=== PATIENT | female | born 1950 | race Hispanic/Latino ===

== ENCOUNTER 2016-12-01 10:59 | Outpatient (CLI) | payer BC, MEDICARE ==
--- NOTE | 2016-12-01 12:56 | XRay Report ---
SKULL: History: Jaw pain. Multiple views demonstrate normal calvaria. No abnormal intracranial calcifications are noted and the visualized bony structures are normal. IMPRESSION: Unremarkable skull series. COMMENT: This report should not preclude CT if symptoms suggest an intracranial abnormality.
--- NOTE | 2016-12-04 08:10 | XRay Report ---
MANDIBLE, 4 VIEWS History: Jaw pain. Findings: No mandibular fracture or bony lesion is appreciated. There is normal articulation at the temporomandibular joints. No large periapical tooth abscess is detected. Impression: Unremarkable mandible.
== END 2016-12-01 11:00 | disposition home or self-care (01) ==
LOC: SPVIMAG 10:59
PROVIDERS: ATTEND Internal Medicine Hematology & Oncology
DX: R68.84 Jaw pain (principal)
CPT/HCPCS: 70110; 70260

== ENCOUNTER 2016-12-07 10:37 | Outpatient (CLI) | payer BC, MEDICARE ==
--- NOTE | 2016-12-10 12:45 | PET Report ---
PET/CT:12/07/16 10:37:00 CLINICAL: Breast cancer restaging. RADIOPHARMACEUTICAL: 14.54mCi F18-FDG. COMPARISON: 08/10/16 PET/CT TECHNIQUE- Following intravenous injection of F-18 FDG and an approximately 60 minute uptake period, CT and PET images from the mid skull to the upper thighs were acquired with the patient in the fasted state. No contrast was administered. The CT protocol used for this PET CT study is designed for attenuation correction and anatomic localization of PET abnormalities. This recreation director CT is not desired to produce and cannot replace, djecv-gt-hyb-art diagnostic CT scans with specific imaging protocols for different body parts and indications. Plasma glucose at the time of this test: 101g/dl. The standardized uptake values (SUV) are normalized to patient body weight and indicate the highest activity concentration (SUV max) in a given disease site. FINDINGS: Brain--Physiologic FDG uptake in the visualized regions of the brain. Neck--Physiologic FDG uptake . Chest--Physiologic FDG uptake in mediastinal blood pool and myocardium. Lungs--No abnormal uptake. No pulmonary nodule or mass. Pleura/pericardium--No abnormal uptake. Thoracic nodes--No abnormal uptake. Hepatobiliary--No abnormal uptake and resolution of previously described hepatic hypodensities. No liver mass. Liver background SUV mean, as a reference for comparing FDG studies, is 3.4 compared to 3.3 on the last exam. Spleen--No abnormal uptake. Pancreas--No abnormal uptake. Adrenal Glands--No abnormal uptake. Kidneys/Ureters/Bladder--No abnormal uptake. Abdominopelvic Nodes--No abnormal uptake. Bowel/Peritoneum/Mesentery--No abnormal uptake. Pelvic organs--No abnormal uptake. Bones/Soft Tissues--No abnormal uptake. Stable extensive sclerotic skeletal lesions with no FDG uptake. No new bone lesions. Other findings: Status post left mastectomy. Stable benign left adrenal adenoma IMPRESSION- Stable disease.
== END 2016-12-07 10:38 | disposition home or self-care (01) ==
LOC: PET 10:37
PROVIDERS: ATTEND Internal Medicine Hematology & Oncology
DX: C50.812 Malignant neoplasm of overlapping sites of left female breast (principal); D35.02 Benign neoplasm of left adrenal gland; G89.3 Neoplasm related pain (acute) (chronic); M89.8X8 Other specified disorders of bone, other site; Z90.12 Acquired absence of left breast and nipple; Z79.899 Other long term (current) drug therapy
CPT/HCPCS: 78815; 82962; A9552

== ENCOUNTER 2017-03-22 12:27 | Outpatient (CLI) | payer BC, MEDICARE ==
--- NOTE | 2017-03-26 08:32 | PET Report ---
PET/CT:03/22/17 12:27:00 CLINICAL: Breast cancer restaging. RADIOPHARMACEUTICAL: 15.01mCi F18-FDG. COMPARISON: 12/07/16 PET/CT TECHNIQUE- Following intravenous injection of F-18 FDG and an approximately 60 minute uptake period, CT and PET images from the mid skull to the upper thighs were acquired with the patient in the fasted state. No contrast was administered. The CT protocol used for this PET CT study is designed for attenuation correction and anatomic localization of PET abnormalities. This law enforcement director CT is not desired to produce and cannot replace, fetyn-sl-jze-art diagnostic CT scans with specific imaging protocols for different body parts and indications. Plasma glucose at the time of this test: 90g/dl. The standardized uptake values (SUV) are normalized to patient body weight and indicate the highest activity concentration (SUV max) in a given disease site. FINDINGS: Brain--Physiologic FDG uptake in the visualized regions of the brain. Neck--Physiologic FDG uptake . Chest--Physiologic FDG uptake in mediastinal blood pool and myocardium. Lungs--No abnormal uptake. No pulmonary nodule or mass. Pleura/pericardium--No abnormal uptake. Thoracic nodes--No abnormal uptake. Hepatobiliary--No abnormal uptake. Liver background SUV mean, as a reference for comparing FDG studies, is 3.9 compared to 3.4 on the last exam. No liver mass. Spleen--No abnormal uptake. Pancreas--No abnormal uptake. Adrenal Glands--No abnormal uptake. Kidneys/Ureters/Bladder--No abnormal uptake. Abdominopelvic Nodes--No abnormal uptake. Bowel/Peritoneum/Mesentery--No abnormal uptake. Pelvic organs--No abnormal uptake. Bones/Soft Tissues--Although extensive sclerotic skeletal metastases are radiographically stable by CT, new focal FDG uptake is identified in lesions of the right iliac bone with SUV 3.2 compared to 1.6 and the posterior right acetabulum with SUV 2.7 compared to 1.7. Other findings: Status post left mastectomy. Status post L5 kyphoplasty. IMPRESSION- 1. New focal FDG uptake in the right iliac bone and right acetabulumis consistent with active disease. 2. The rest of the exam is unchanged.
== END 2017-03-22 12:28 | disposition home or self-care (01) ==
LOC: PET 12:27
PROVIDERS: ATTEND Internal Medicine Hematology & Oncology
DX: C50.812 Malignant neoplasm of overlapping sites of left female breast (principal); G89.3 Neoplasm related pain (acute) (chronic); I10 Essential (primary) hypertension; F17.200 Nicotine dependence, unspecified, uncomplicated; Z79.899 Other long term (current) drug therapy
CPT/HCPCS: 78815; 82962; A9552

== ENCOUNTER 2017-04-18 09:42 | Outpatient (CLI) | payer BC, MEDICARE ==
--- NOTE | 2017-04-19 13:03 | Magnetic Resonance Report ---
MRI of the lumbar spine with and without contrast. History: Back pain, history of breast cancer. Comparison is made to the previous similar study performed in March of 2015. Procedure: Sagittal T1-weighted, T2-weighted, inversion recovery images, axial T1 and T2-weighted images, and post gadolinium sagittal and axial T1-weighted images were used in the study. Findings: The compression fractures seen at the L2 and L5 vertebral bodies appear similar to the previous study with post kyphoplasty changes also noted at L5. Numerous areas of abnormal signal throughout the lumbar spine appears similar to the previous study. There is however overall marked diminution in the number and extent of diffuse skeletal enhancing lesions compared to the prior study. The broad-based disc bulge at L5-S1 persists with similar degree of right foraminal stenosis. No new areas of disc pathology are present. Numerous enhancing skeletal metastases in the visualized bony pelvis are also again noted, again with moderate diminished enhancement. There are no intradural masses or evidence of intradural metastatic disease. The conus is normal. Impression: Overall significant improvement in the degree and number of diffuse enhancing lesions throughout the lumbar spine although the foci of diffuse hypointense T1 and hyperintense T2 signal is unchanged. Similar findings are seen in the visualized bony pelvis. 2. Persistent disc bulge at L5-S1, eccentric to the right with moderate to severe right neural foraminal stenosis. 3. Stable chronic compression fractures of L2 and L5 with post kyphoplasty changes at L5. No new compression abnormalities are seen.
--- NOTE | 2017-04-19 14:02 | Magnetic Resonance Report ---
MRI CERVICAL SPINE WITHOUT AND WITH CONTRAST: 04/18/17 CLINICAL: Right shoulder pain. Breast cancer with known skeletal metastasis. TECHNIQUE: Sagittal T1,T2 and STIR and axial gradient T2* sequences plus sagittal and axial postcontrast T1 fat sat sequences on a 1.5 Jayde magnet. 12 cc of Multihance was injected intravenously for the contrast portion of the exam and so was obtained prior to administration of contrast. FINDINGS:Normal vertebral body alignment through T1. Slight decrease height of the C5 and C6 vertebral bodies is consistent with degenerative loss of height. Small anterior and posterior osteophytes C5-6 and C6-7. The marrow signal is heterogeneous. No enhancing marrow lesions. The spinal cord is normal size with normal signal. The cerebellar tonsils are in normal position. C2-3: Intact. C3-4:Small broad-based central disc protrusion with effacement of the thecal sac and mild mass effect on the cord. Uncal osteophytes and bilateral facet hypertrophy. Moderate left neural foraminal stenosis. Mild right neural foraminal stenosis. C4-5: Intact disc. Right facet hypertrophy. Minimal right neural foraminal narrowing. C5-6:Degeneration of the disc and a broad-based central disc-osteophyte producing effacement of the thecal sac and mild mass effect on the cord. Uncal osteophytes and moderate bilateral neural foraminal narrowing, left greater than right. C6-7:Degeneration of the disc and a broad-based central and right paracentral osteophyte producing effacement of the thecal sac and mild mass effect on the cord. Uncal osteophytes and moderate bilateral neural foraminal narrowing. C7-T1:Intact. IMPRESSION: 1. Heterogeneous marrow signal consistent with known skeletal metastasis. However, no enhancing marrow lesions. 2. Multilevel degenerative disease with mild spinal canal stenosis. The canal stenosis is greatest at C3-4. 3. Mild mass effect on the cord at multiple levels but no cord edema and no cord lesion. 4. Multilevel bilateral neural foraminal narrowing secondary to osteophytes and facet hypertrophy.
--- NOTE | 2017-04-19 14:12 | Magnetic Resonance Report ---
MRI THORACIC SPINE WITHOUT AND WITH CONTRAST: 04/18/17 CLINICAL: History of breast cancer with known skeletal metastasis. Right shoulder pain. COMPARISON: CT PET 03/22/17 TECHNIQUE: Sagittal and axial T1 and T2, and sagittal STIR sequences plus sagittal and axial T1 fat-sat postcontrast sequences on a 1.5 Jayde magnet. FINDINGS: Normal vertebral body height, alignment and disk spaces. The spinal cord is normal size with normal signal. No enhancing lesion of the cord. Heterogeneous marrow signal with numerous hypointense marrow lesions consistent with known skeletal metastases. However, none of these lesions enhance. No mass or enhancing lesion. No fracture. The conus medullaris is normal and terminates at L1. The disks are intact at all levels. No disk protrusions or bulges. IMPRESSION: Extensive skeletal metastasis with involvement of all levels by hypointense lesions which do not enhance. This is consistent with the known sclerotic metastases identified on PET. No lesion and no enhancing lesion.
== END 2017-04-18 09:43 | disposition home or self-care (01) ==
LOC: SPVIMAG 09:42
PROVIDERS: ATTEND Internal Medicine Hematology & Oncology
DX: C79.51 Secondary malignant neoplasm of bone (principal); M48.06 Spinal stenosis, lumbar region; M48.02 Spinal stenosis, cervical region; G89.3 Neoplasm related pain (acute) (chronic); R93.8 Abnormal findings on diagnostic imaging of other specified body structures; M50.30 Other cervical disc degeneration, unspecified cervical region; M25.78 Osteophyte, vertebrae; M48.56XA Collapsed vertebra, not elsewhere classified, lumbar region, initial encounter for fracture; I10 Essential (primary) hypertension; Z85.3 Personal history of malignant neoplasm of breast; Z98.890 Other specified postprocedural states; F17.200 Nicotine dependence, unspecified, uncomplicated
CPT/HCPCS: 72156; 72157; 72158; A9577

== ENCOUNTER 2017-04-25 12:57 | Outpatient (CLI) | payer BC, MEDICARE ==
--- NOTE | 2017-04-26 10:46 | Magnetic Resonance Report ---
MRI RIGHT SHOULDER WITHOUT AND LEFT CONTRAST: 04/25/17 CLINICAL: Bilateral shoulder pain and known skeletal breast cancer metastases. COMPARISON: 03/22/17 CT PET TECHNIQUE: Coronal T1, coronal T2, coronal proton density fat saturation, sagittal proton density fat saturation and axial gradient echo T* sequences plus sagittal, coronal and axial T1 fat-sat postcontrast sequences on a 1.5 Jayde magnet. 13.0 cc of Multihance was injected intravenously for the contrast portion of the exam and consent was obtained prior to the administration of contrast. FINDINGS: Type II acromion and mild acromioclavicular joint arthritis. The rotator cuff is intact. Intact glenoid labrum and biceps tendon. Small joint effusion and abnormal thickening and enhancement of the joint capsule. The thickening and enhancement are especially pronounced at the inferior and posterior aspects of the capsule where it measures 7 mm thick. Although the rotator cuff is intact, abnormal enhancement extends to the peritendinous soft tissues in the rotator interval. Small volume of subdeltoid and subacromial fluid with adjacent enhancement. Several foci of abnormal marrow signal of the humeral head and neck are consistent with metastases. These lesions are mildly hypointense on T1, mildly hyperintense on T2 but demonstrate enhancement postcontrast. An 8mm lesion of the humeral neck and a subarticular humeral lesion at the glenohumeral joint. The muscles have normal signal with no abnormal enhancement and no atrophy. IMPRESSION: Abnormal thickening and enhancement of the joint capsule and periarticular soft tissues consistent with adhesive capsulitis of uncertain etiology. Marrow lesions of the humeral head and neck are consistent with metastases and it raises the suspicion that the inflammatory changes in the joint capsule and periarticular soft tissues may be a manifestation of metastatic disease. However, in the absence of cancer, these findings are often idiopathic or may be attributed to inflammatory disease such as rheumatoid arthritis.
--- NOTE | 2017-04-26 10:53 | Magnetic Resonance Report ---
MRI LEFT SHOULDER WITHOUT AND LEFT CONTRAST: 04/25/17 CLINICAL: Bilateral shoulder pain and known skeletal breast cancer metastases. COMPARISON: 03/22/17 CT PET TECHNIQUE: Coronal T1, coronal T2, coronal proton density fat saturation, sagittal proton density fat saturation and axial gradient echo T* sequences plus sagittal, coronal and axial T1 fat-sat postcontrast sequences on a 1.5 Jayde magnet. 13.0 cc of Multihance was injected intravenously for the contrast portion of the exam and consent was obtained prior to the administration of contrast. FINDINGS: Type II acromion and moderate acromioclavicular joint arthritis. The rotator cuff is intact. Intact glenoid labrum and biceps tendon. Small joint effusion and abnormal thickening and enhancement of the joint capsule which is similar to similar findings in the right shoulder. The thickening and enhancement are especially pronounced at the inferior and posterior aspects of the capsule where it measures 11.1 mm thick. Although the rotator cuff is intact, abnormal enhancement extends to the peritendinous soft tissues in the rotator interval. A small volume of subdeltoid and subacromial fluid with adjacent enhancement. Several foci of abnormal marrow signal of the humeral neck and shaft are consistent with metastases. These lesions are mildly hypointense on T1, mildly hyperintense on T2 but demonstrate enhancement postcontrast. The muscles have normal signal with no abnormal enhancement and no atrophy. IMPRESSION: Abnormal thickening and enhancement of the joint capsule and periarticular soft tissues consistent with adhesive capsulitis of uncertain etiology. Marrow lesions of the humerus are consistent with metastases and it raises the suspicion that the inflammatory changes in the joint capsule and periarticular soft tissues may be a manifestation of metastatic disease. However, in the absence of cancer, these findings are often idiopathic or may be attributed to inflammatory disease such as rheumatoid arthritis. Although the joint capsule is thicker there is overall less abnormal enhancement of the joint capsule and soft tissues of the left shoulder when compared to the right.
== END 2017-04-25 12:58 | disposition home or self-care (01) ==
LOC: SPVIMAG 12:57
PROVIDERS: ATTEND Internal Medicine Hematology & Oncology
DX: C79.51 Secondary malignant neoplasm of bone (principal); M19.011 Primary osteoarthritis, right shoulder; M19.012 Primary osteoarthritis, left shoulder; C50.812 Malignant neoplasm of overlapping sites of left female breast; G89.3 Neoplasm related pain (acute) (chronic); I10 Essential (primary) hypertension; F17.200 Nicotine dependence, unspecified, uncomplicated
CPT/HCPCS: 73223; A9577

== ENCOUNTER 2017-07-11 07:02 | Day surgery (SDC) | payer BC, MEDICARE ==
[2017-07-11 07:58] LABS: Basophils % (Auto) 1.4 % (0.0-1.8); Eosinophils % (Auto) 7.3 % (0.0-4.3); Hematocrit 37.7 % (30.3-42.9); Hemoglobin 12.5 gm/dl (10.1-14.3); Mean Corpuscular HGB Conc 33 % (30-34); Mean Corpuscular Hemoglobin 34 pg (28-32); Mean Corpuscular Volume 103 fl (79-97); Platelet Count 260 K/mm3 (140-440); Red Blood Count 3.67 M/mm3 (3.65-5.03); Red Cell Distribution Width 18.1 % (13.2-15.2); White Blood Count 6.2 K/mm3 (4.5-11.0)
[2017-07-11 08:08] LABS: INR 0.93 (0.87-1.13)
[2017-07-11 08:09] LABS: Partial Thromboplastin Time 28.1 Sec. (24.2-36.6)
[2017-07-11] MEDS ORDERED: NACL 0.9% 500 ML 500 ML IV SCH (09:00)
[2017-07-11 09:19] LABS: Blood Urea Nitrogen 15 mg/dL (7-17)
[2017-07-11] MEDS ORDERED: SUBLIMAZE IV ONE (09:30)
[2017-07-11] MEDS ORDERED: VERSED IV ONE (09:30)
--- NOTE | 2017-07-11 11:10 | Short Stay Summary ---
Short Stay Documentation Date of service: 07/11/17 - History Principal diagnosis: breast ca; liver lesions Past Medical History: cancer - Allergies and Medications Current Medications: Allergies No Known Allergies Allergy (Verified 07/11/17 07:30) Home Medications Medication Instructions Recorded Confirmed Last Taken Type Anastrozole 1 mg PO DAILY 11/28/13 07/11/17 07/10/17 History Atenolol 50 mg PO DAILY 11/28/13 07/11/17 07/10/17 History Lisinopril 40 mg PO DAILY 11/28/13 07/11/17 07/10/17 History HYDROcodone/APAP 10-325 [[place] 1 each PO Q6HR PRN #60 tablet 12/04/13 07/11/17 07/10/17 Rx 10/325] Active Medications Sodium Chloride (Nacl 0.9% 500 Ml) 500 mls @ 50 mls/hr IV DIRECT WILL Last Admin: 07/11/17 09:30 Dose: 50 mls/hr - Physical exam General appearance: no acute distress - Brief post op/procedure progress note Date of procedure: 07/11/17 Pre-op diagnosis: Liver lesions Post-op diagnosis: same Procedure: Liver bx. Anesthesia: local Surgeon: SAMMIE NICOLE Estimated blood loss: none Specimen disposition: to lab Condition: stable - Disposition Condition at discharge: Good Disposition: [id number] TO HOME OR SELFCARE Short Stay Discharge Plan Follow up with: JUDITH ESCALERA MD [Primary Care Provider] - 7 Days
--- NOTE | 2017-07-11 11:16 | Cat Scan Report ---
CT guided liver biopsy. History: Breast cancer with hypodense liver lesions. Procedure: The patient's skin surface overlying the right upper abdomen was prepped and draped using sterile technique. Local anesthetic was injected into the skin. Using CT guidance, a 17-gauge sheath needle was advanced to the lateral margin of the largest hypodense lesion seen in the left lobe of the liver. 3 passes were made using an 18-gauge biopsy gun. Initial touch prep slides demonstrated malignant cells, and the procedure was then terminated. Intraservice time is 30 minutes. Intravenous conscious sedation was used. Independent cardiorespiratory monitoring was performed by the outpatient procedure nurse, for 30 minutes, supervised by me. The patient tolerated the procedure well clinically. Postbiopsy images demonstrate no evidence of hemorrhage or other signs of palpitations. The patient was sent to the outpatient procedure unit for further short term observation in satisfactory condition.
[2017-07-11 14:01] VITALS: BP 106/58
== END 2017-07-11 13:50 | disposition home or self-care (01) ==
LOC: CATHLABREC 07:02 → EDSTATUS 08:30 → CATHLABREC 13:50
PROVIDERS: ATTEND Internal Medicine Hematology & Oncology
DX: C78.7 Secondary malignant neoplasm of liver and intrahepatic bile duct (principal); C50.812 Malignant neoplasm of overlapping sites of left female breast; Z79.899 Other long term (current) drug therapy
CPT/HCPCS: 36415; 47000; 77012; 82565; 84520; 85025; 85610; 85730; 88172; 88173; 88307; 88333; 88341; 88342; 88361; J2250; J3010; J7040; Q9967

== ENCOUNTER 2017-10-04 08:44 | Outpatient (CLI) | payer BC, MEDICARE ==
--- NOTE | 2017-10-05 09:16 | PET Report ---
PET/CT:10/04/17 08:44:00 CLINICAL: Breast cancer restaging. CT-guided liver biopsy on 07/11/17 confirm metastatic carcinoma. RADIOPHARMACEUTICAL: 14.2mCi F18-FDG. COMPARISON: 06/28/17 PET/CT TECHNIQUE- Following intravenous injection of F-18 FDG and an approximately 60 minute uptake period, CT and PET images from the mid skull to the upper thighs were acquired with the patient in the fasted state. No contrast was administered. The CT protocol used for this PET CT study is designed for attenuation correction and anatomic localization of PET abnormalities. This slitting machine operator helper CT is not desired to produce and cannot replace, hltas-yn-vkj-art diagnostic CT scans with specific imaging protocols for different body parts and indications. Plasma glucose at the time of this test: 109g/dl. The standardized uptake values (SUV) are normalized to patient body weight and indicate the highest activity concentration (SUV max) in a given disease site. FINDINGS: Brain--Physiologic FDG uptake in the visualized regions of the brain. Neck--Physiologic FDG uptake . Chest--Physiologic FDG uptake in mediastinal blood pool and myocardium. Lungs--No abnormal uptake. No pulmonary nodule or mass. Pleura/pericardium--No abnormal uptake. Thoracic nodes--No abnormal uptake. Hepatobiliary--No abnormal uptake and previously described left lobe hypodense FDG avid masses have resolved. Liver background SUV mean, as a reference for comparing FDG studies, is 3.1 compared to 3.4 on the last exam. Spleen--No abnormal uptake. Pancreas--No abnormal uptake. Adrenal Glands--No abnormal uptake. Kidneys/Ureters/Bladder--No abnormal uptake. Abdominopelvic Nodes--No abnormal uptake. Bowel/Peritoneum/Mesentery--No abnormal uptake. Pelvic organs--No abnormal uptake. Bones/Soft Tissues--Stable extensive skeletal metastasis and no new lesions. The greatest activity is in the right iliac bone with SUV 3.3 compared to 3.2. Decrease FDG uptake in the soft tissues of the right shoulder. IMPRESSION- 1. Positive response to therapy with resolution of hepatic metastases. 2. Stable skeletal metastasis. 3. No evidence of silvia or pulmonary metastasis.
== END 2017-10-04 08:45 | disposition home or self-care (01) ==
LOC: PET 08:44
PROVIDERS: ATTEND Internal Medicine Hematology & Oncology
DX: C79.51 Secondary malignant neoplasm of bone (principal); C50.812 Malignant neoplasm of overlapping sites of left female breast; G89.3 Neoplasm related pain (acute) (chronic); F17.200 Nicotine dependence, unspecified, uncomplicated; Z79.899 Other long term (current) drug therapy
CPT/HCPCS: 78815; 82962; A9552

== ENCOUNTER 2017-12-10 09:04 | Outpatient (CLI) | payer BC, MEDICARE ==
[2017-12-10] MEDS ORDERED: FLUSH HEPARIN IV NR (10:19)
[2017-12-10 10:40] LABS: Blood Urea Nitrogen 20 mg/dL (7-17)
[2017-12-10] MEDS ORDERED: FLUSH HEPARIN IV ONE (11:38)
--- NOTE | 2017-12-11 09:11 | Magnetic Resonance Report ---
MRI UPPER EXTREMITY JOINT LEFT WITH AND WITHOUT CONTRAST HISTORY: Left shoulder pain. TECHNIQUE: Multisequence, multiplanar MRI through the left shoulder before and after IV gadolinium. COMPARISON: 04/25/17. FINDINGS: There are small foci of bone marrow edema and enhancement following contrast within the left humeral head and humeral neck regions consistent with metastatic lesions. These are not significantly changed since the comparison exam. No evidence for fracture, dislocation or ligamentous injury. Mild osteoarthritic changes at the a.c. joint are unchanged. Type II acromion. The previously described thickening and abnormal enhancement involving the joint capsule has resolved. The joint capsule is within normal limits on today's exam. No evidence for joint effusion or significant bursal fluid. The supraspinatus, infraspinatus, teres minor and subscapularis tendons are intact. There may be mild thickening and increased signal in the distal supraspinatus tendon consistent with mild tendinosis. No full thickness tear is appreciated. The biceps tendon and its anchor upon the superior labrum are within normal limits. No gross labral defect is appreciated although arthrogram was not performed. IMPRESSION: Thickening and abnormal enhancement of the joint capsule seen on the previous exam has resolved. This presumably represents resolution of adhesive capsulitis. Small foci of abnormal bone marrow signal and enhancement in the humeral head and neck region are consistent with metastatic disease. This has not significantly changed since 04/25/17. Mild acromioclavicular osteoarthritis, stable. Question mild tendinosis of the distal supraspinatus tendon. No full-thickness rotator cuff tear appreciated.
== END 2017-12-10 09:05 | disposition home or self-care (01) ==
LOC: MRI 09:04
PROVIDERS: ATTEND Internal Medicine Hematology & Oncology
DX: C50.812 Malignant neoplasm of overlapping sites of left female breast (principal); M19.012 Primary osteoarthritis, left shoulder; G89.3 Neoplasm related pain (acute) (chronic)
CPT/HCPCS: 36415; 73223; 82565; 84520; A9577; J1642

== ENCOUNTER 2018-01-17 11:01 | Outpatient (CLI) | payer BC, MEDICARE ==
[2018-01-17] MEDS ORDERED: FLUSH HEPARIN IV ONE ×3 (12:02→12:37)
--- NOTE | 2018-01-24 13:00 | PET Report ---
PET/CT:01/17/18 11:01:00 CLINICAL: Breast cancer restaging. Known skeletal metastasis and biopsy confirmed hepatic metastasis. RADIOPHARMACEUTICAL: 12.796mCi F18-FDG. COMPARISON: 10/04/17 PET/CT TECHNIQUE- Following intravenous injection of F-18 FDG and an approximately 60 minute uptake period, CT and PET images from the mid skull to the upper thighs were acquired with the patient in the fasted state. No contrast was administered. The CT protocol used for this PET CT study is designed for attenuation correction and anatomic localization of PET abnormalities. This quality auditor CT is not desired to produce and cannot replace, uzayp-ie-cko-art diagnostic CT scans with specific imaging protocols for different body parts and indications. Plasma glucose at the time of this test: 128g/dl. The standardized uptake values (SUV) are normalized to patient body weight and indicate the highest activity concentration (SUV max) in a given disease site. FINDINGS: Brain--Physiologic FDG uptake in the visualized regions of the brain. Neck--Physiologic FDG uptake in mucosal structures with the greatest activity in the larynx. Chest--Physiologic FDG uptake in mediastinal blood pool and myocardium. Lungs--No abnormal uptake. No pulmonary nodule or mass. Pleura/pericardium--No abnormal uptake. Thoracic nodes--No abnormal uptake. Hepatobiliary--A new 2 cm FDG avid hypoechoic right hepatic mass. The mass is irregular with SUV 3.6. Two additional smaller FDG avid right hepatic lesions with HCV 2.8 and 2.5. These have no CT correlate. The previously biopsied lesion is not identified. Liver background SUV mean, as a reference for comparing FDG studies, is 2.5 compared to 3.0 on the last exam. Spleen--No abnormal uptake. Pancreas--No abnormal uptake. Adrenal Glands--No abnormal uptake. Kidneys/Ureters/Bladder--No abnormal uptake. Abdominopelvic Nodes--No abnormal uptake. Bowel/Peritoneum/Mesentery--No abnormal uptake. Pelvic organs--No abnormal uptake. Bones/Soft Tissues--Extensive skeletal metastasis with too numerous to count stable sclerotic lesions throughout the skeleton. No new lesions. Most of the lesions have activity equal to background. However there are several FDG avid skeletal lesions with the most prominent in the right iliac bone with SUV 4.2 compared to 3.3 on the last exam. Other findings: IMPRESSION- Progression of disease with new right hepatic metastases and slightly greater FDG uptake in the most FDG avid skeletal metastasis.
== END 2018-01-17 11:02 | disposition home or self-care (01) ==
LOC: PET 11:01
PROVIDERS: ATTEND Internal Medicine Hematology & Oncology
DX: C50.812 Malignant neoplasm of overlapping sites of left female breast (principal); C78.7 Secondary malignant neoplasm of liver and intrahepatic bile duct; G89.3 Neoplasm related pain (acute) (chronic); R79.89 Other specified abnormal findings of blood chemistry
CPT/HCPCS: 78815; 82962; A9552; J1642

== ENCOUNTER 2018-04-24 08:54 | Outpatient (CLI) | payer BC, MEDICARE ==
[2018-04-24] MEDS ORDERED: FLUSH HEPARIN IV ONE ×2 (10:30→12:08)
--- NOTE | 2018-04-24 13:29 | Cat Scan Report ---
CT CHEST WITH CONTRAST: HISTORY: Breast cancer. COMPARISON: Head CT dated 01/17/18. TECHNIQUE: Helical CT in 1.25mm intervals following IV contrast. Sagittal and coronal reformatted images. FINDINGS: Thyroid gland: Normal. Tracheobronchial tree: Normal. Esophagus: Normal. Heart: Normal. Pericardium: Normal. Mediastinum: Normal. Lung Parra: Normal. Pleural Spaces: Normal. Musculoskeletal: Extensive sclerotic bony lesions throughout the thoracic cage are stable. No pathologic fracture is identified. Stable left mastectomy changes. IMPRESSION: Extensive bony metastasis appear stable since the most recent PET/CT. No silvia or pulmonary disease is appreciated in the chest.
--- NOTE | 2018-04-24 13:37 | Cat Scan Report ---
CT ABDOMEN PELVIS WITH CONTRAST: HISTORY: Breast cancer. COMPARISON: PET/CT dated 01/17/18. TECHNIQUE: Helical CT in 1.25mm intervals following IV contrast. Sagittal and coronal reconstructions. FINDINGS: Liver: The liver is normal size and contour. A 1.2 cm hypodense mass is identified in the anterior right hepatic lobe on image 151. A 0.8 cm hypodense lesion is identified in the posterior right hepatic lobe on image 156. A 2.0 cm hypodense lesion is identified in the inferior right hepatic lobe on image 182. Biliary system: Normal. Pancreas: The proximal pancreas is atrophic. The distal pancreas is normal. No pancreatic mass or inflammation. Spleen: Normal. Kidneys/ureters/bladder: Normal. Adrenal glands: A 1.3 cm hypodense left adrenal lesion is identified which is unchanged and probably represents an adrenal adenoma. The right adrenal gland is normal. Aorta: Mild diffuse calcifications. No aneurysm, stenosis or dissection. Intestines: There is moderate fecal retention in the colon. A few scattered diverticula are noted in the distal colon. No evidence for focal inflammation or obstruction. Appendix: Normal. Pelvic viscera: Hysterectomy changes. Ascites: None. Adenopathy: No pathologic adenopathy is identified. Musculoskeletal: Diffuse sclerotic bony lesions throughout the spine and pelvis appear stable. Kyphoplasty changes at L5 are noted. IMPRESSION: At least 3 suspicious liver lesions are identified as described above consistent with metastatic disease. Diffuse sclerotic bony lesions are stable. No significant change is appreciated since the PET/CT dated 01/17/18.
== END 2018-04-24 08:55 | disposition home or self-care (01) ==
LOC: CT 08:54
PROVIDERS: ATTEND Internal Medicine Hematology & Oncology
DX: C50.812 Malignant neoplasm of overlapping sites of left female breast (principal); M89.9 Disorder of bone, unspecified; E78.00 Pure hypercholesterolemia, unspecified; I10 Essential (primary) hypertension; Z90.89 Acquired absence of other organs; Z90.710 Acquired absence of both cervix and uterus; Z90.12 Acquired absence of left breast and nipple
CPT/HCPCS: 36415; 71260; 74177; 82565; 84520; J1642; Q9967

== ENCOUNTER 2018-10-31 12:21 | Outpatient (CLI) | payer BC, MEDICARE ==
[2018-10-31] MEDS ORDERED: FLUSH HEPARIN IV ONE ×2 (13:09→14:31)
--- NOTE | 2018-11-01 14:17 | PET Report ---
PET/CT:10/31/18 12:21:00 CLINICAL: Breast cancer restaging. History of skeletal and hepatic metastasis. RADIOPHARMACEUTICAL: 11.336mCi F18-FDG. COMPARISON: 01/17/18 PET/CT TECHNIQUE- Following intravenous injection of F-18 FDG and an approximately 60 minute uptake period, CT and PET images from the mid skull to the upper thighs were acquired with the patient in the fasted state. No contrast was administered. The CT protocol used for this PET CT study is designed for attenuation correction and anatomic localization of PET abnormalities. This electrical controls assembler CT is not desired to produce and cannot replace, ekdgl-sz-lih-art diagnostic CT scans with specific imaging protocols for different body parts and indications. Plasma glucose at the time of this test: 104g/dl. The standardized uptake values (SUV) are normalized to patient body weight and indicate the highest activity concentration (SUV max) in a given disease site. FINDINGS: Brain--Physiologic FDG uptake in the visualized regions of the brain. Neck--A new FDG avid 8mm right level II jugular lymph node with SUV 6.2. Left level II jugular focal FDG uptake with a CV 3.8 and no identifiable lymph node. Physiologic FDG uptake in mucosal structures. Chest--Physiologic FDG uptake in mediastinal blood pool and myocardium. Lungs--No abnormal uptake. No pulmonary nodule or mass. Pleura/pericardium--No abnormal uptake. Thoracic nodes--No abnormal uptake. Hepatobiliary--A new 1.5 cm FDG avid right hepatic lesion with SUV 4.2 and 2 new foci of FDG uptake in the left lobe lateral segment with SUV 3.6 and 3.3. No corresponding lesions are identified on the CT. Previously identified hepatic lesions are not identified. Liver background SUV mean, as a reference for comparing FDG studies, is 2.8 compared to 2.5 on the last exam. Spleen--No abnormal uptake. Pancreas--No abnormal uptake. Adrenal Glands--No abnormal uptake. Kidneys/Ureters/Bladder--No abnormal uptake. Abdominopelvic Nodes--No abnormal uptake. Bowel/Peritoneum/Mesentery--No abnormal uptake. Pelvic organs--No abnormal uptake. Bones/Soft Tissues--Stable diffuse sclerotic non-FDG avid bone lesions and no new lesions. No abnormal uptake. IMPRESSION- Progression of disease with new suspicious FDG avid cervical lymphadenopathy and new FDG avid hepatic lesions. Stable skeletal metastasis and no evidence of pulmonary metastasis.
== END 2018-10-31 12:22 | disposition home or self-care (01) ==
LOC: PET 12:21
PROVIDERS: ATTEND Internal Medicine Hematology & Oncology
DX: C50.812 Malignant neoplasm of overlapping sites of left female breast (principal); G89.3 Neoplasm related pain (acute) (chronic); E78.00 Pure hypercholesterolemia, unspecified; F17.200 Nicotine dependence, unspecified, uncomplicated; Z90.710 Acquired absence of both cervix and uterus
CPT/HCPCS: 78815; 82962; A9552; J1642

== ENCOUNTER 2019-02-13 10:05 | Outpatient (CLI) | payer BC, MEDICARE ==
[2019-02-13] MEDS ORDERED: FLUSH HEPARIN IV ONE ×2 (11:52→12:22)
--- NOTE | 2019-02-19 09:11 | PET Report ---
PET/CT:02/13/19 10:05:00 CLINICAL: Breast cancer restaging. History of skeletal and hepatic metastasis. RADIOPHARMACEUTICAL: 14.275mCi F18-FDG. COMPARISON: 10/31/18 PET/CT TECHNIQUE- Following intravenous injection of F-18 FDG and an approximately 60 minute uptake period, CT and PET images from the mid skull to the upper thighs were acquired with the patient in the fasted state. No contrast was administered. The CT protocol used for this PET CT study is designed for attenuation correction and anatomic localization of PET abnormalities. This behavior analyst CT is not desired to produce and cannot replace, klalf-rq-lko-art diagnostic CT scans with specific imaging protocols for different body parts and indications. Plasma glucose at the time of this test: 106g/dl. The standardized uptake values (SUV) are normalized to patient body weight and indicate the highest activity concentration (SUV max) in a given disease site. FINDINGS: Brain--Physiologic FDG uptake in the visualized regions of the brain. Neck--Physiologic FDG uptake in mucosal structures. No mass or lymphadenopathy. Previously described bilateral FDG avid cervical lymphadenopathy has resolved. Chest--Physiologic FDG uptake in mediastinal blood pool and myocardium. Lungs--No abnormal uptake. No pulmonary nodule or mass. Pleura/pericardium--No abnormal uptake. Thoracic nodes--No abnormal uptake. Hepatobiliary--Previously identified FDG avid hepatic lesions have resolved. However, a few small foci of FDG uptake in the right hepatic lobe are new and are suspicious for metastases. The most intense focus of FDG uptake in the medial inferior right hepatic lobe with SUV 4.2. Liver background SUV mean, as a reference for comparing FDG studies, is 3.1 compared to 2.8 on the last exam. Spleen--No abnormal uptake. Pancreas--No abnormal uptake. Adrenal Glands--No abnormal uptake. Kidneys/Ureters/Bladder--No abnormal uptake. Abdominopelvic Nodes--No abnormal uptake. Bowel/Peritoneum/Mesentery--No abnormal uptake. Pelvic organs--No abnormal uptake. Bones/Soft Tissues--No abnormal uptake. Stable diffuse sclerotic non-FDG avid bone lesions and no new lesions. Other findings: Status post left mastectomy. IMPRESSION- 1. A mixed response to treatment with resolution of FDG avid cervical lymphadenopathy and resolution of several FDG avid hepatic lesions. However, a few new FDG avid hepatic lesions are suspicious for metastases. 2. Stable skeletal metastasis. 3. No evidence of silvia or pulmonary metastasis.
== END 2019-02-13 10:06 | disposition home or self-care (01) ==
LOC: PET 10:05
PROVIDERS: ATTEND Internal Medicine Hematology & Oncology
DX: C50.812 Malignant neoplasm of overlapping sites of left female breast (principal); E78.00 Pure hypercholesterolemia, unspecified; I10 Essential (primary) hypertension; G89.3 Neoplasm related pain (acute) (chronic); E83.51 Hypocalcemia; M87.9 Osteonecrosis, unspecified
CPT/HCPCS: 78815; 82962; A9552; J1642

== ENCOUNTER 2019-05-08 09:16 | Outpatient (CLI) | payer BC, MEDICARE ==
[2019-05-08] MEDS ORDERED: FLUSH HEPARIN IV ONE ×2 (10:12→10:30)
--- NOTE | 2019-05-08 15:32 | PET Report ---
PET SB TO MT SUBSEQUENT HISTORY: C50.812. Restaging of left breast cancer. TECHNIQUE: The patient's fasting blood glucose was 100. The patient weighed 112 lbs. The patient w as injected with 13.8 mCi of FDG in the Port-A-Cath at 1001 hours and imaging was started at 1049 matheus rs. The patient was imaged from the skull base to the thighs. All CT scans at this location are perf ormed using CT dose reduction for ALARA by means of automated exposure control. COMPARISON: 10/31/2018 FINDINGS: FDG findings: There is no evidence for abnormal hypermetabolic activity on today's examination. The previously described hypermetabolic lymph nodes in the cervical chains and focal areas of liver uptak e have resolved since the previous exam. No new areas of abnormal activity are demonstrated. Mean artur er SUV measures 3.7. Non-FDG findings: Stable left mastectomy changes. No recurrent thoracic mass or adenopathy. The lung s are clear. No pulmonary nodule or mass. Normal heart and mediastinal structures. The abdominal and pelvic viscera demonstrate no evidence for mass or inflammation. Diverticulosis the distal colon is noted. Hysterectomy changes. Numerous sclerotic bony lesions are again identified which appear unchanged in size and number. Kypho plasty changes at L5 are noted. IMPRESSION: A positive response to therapy is demonstrated since the previous exam. Slightly increase d uptake in cervical lymph nodes and small liver lesions have resolved since the previous examination . Numerous sclerotic bony lesions throughout the axial skeleton appear stable and remain hypometaboli c. Essentially negative PET/CT. Signer Name: Donald Trinh Jr, MD Signed: 05/08/2019 3:28 PM Workstation Name: [id number]
== END 2019-05-08 09:17 | disposition home or self-care (01) ==
LOC: PET 09:16
PROVIDERS: ATTEND Internal Medicine Hematology & Oncology
DX: K57.30 Diverticulosis of large intestine without perforation or abscess without bleeding (principal); C50.812 Malignant neoplasm of overlapping sites of left female breast; G89.3 Neoplasm related pain (acute) (chronic); E83.51 Hypocalcemia; E78.00 Pure hypercholesterolemia, unspecified; I10 Essential (primary) hypertension; Z90.710 Acquired absence of both cervix and uterus
CPT/HCPCS: 78815; 82962; A9552; J1642

== ENCOUNTER 2019-07-17 10:26 | Outpatient (CLI) | payer BC, MEDICARE ==
--- NOTE | 2019-07-17 15:07 | PET Report ---
PET/CT Scan07/17/2019 Indication: C50.812 Restaging Technique: 14.2 mCi of F18-FDG is administered via the Port-A-Cath at 1146 hours. Imaging is performed at 1252 hours. Glucose level is 87 mg/dl just prior to the exam. Imaging is performed from the skull base to the proximal thighs. CT imaging is obtained for attenuation correction and anatomic localization . Comparison: PET CT scan dated 05/08/2019 Findings: No pathologic uptake of tracer is seen in the neck or chest. There are hypermetabolic lesions in the liver. 2 lesions in the dome of the liver measure 5.9 and 7 SUV respectively. Lesion in the right lo be of the liver posteriorly measures 6.5 SUV. There is focal abnormal uptake noted in the right aceta bulum measuring approximately 5.4 SUV. On review of bone windows there are extensive osteoblastic metastases which are hypermetabolic. There is a sclerotic focus in the right acetabulum corresponding to the focus of uptake in this location. The overall appearance of osseous metastatic disease appears similar to the prior study on the accomp anying CT. On review of the accompanying CT no pulmonary nodules are seen. There are hypodense lesions in the li matt some of which are hypermetabolic described above. Compared to the prior study lesions in the liver significantly more prominent than identifiable on to day's exam Impression: There is hepatic metastatic disease which is hypermetabolic. This has shown interval worsening since the prior study There is a hypermetabolic focus in the right acetabulum corresponding to a sclerotic metastasis. There is extensive sclerotic metastatic disease in the skeleton which does not show abnormal uptake. Signer Name: Aubrey Prasad MD Signed: 07/17/2019 3:03 PM Workstation Name: [id number]
== END 2019-07-17 10:27 | disposition home or self-care (01) ==
LOC: PET 10:26
PROVIDERS: ATTEND Internal Medicine Hematology & Oncology
DX: C79.51 Secondary malignant neoplasm of bone (principal); C50.812 Malignant neoplasm of overlapping sites of left female breast; G89.3 Neoplasm related pain (acute) (chronic); E83.51 Hypocalcemia; M87.9 Osteonecrosis, unspecified
CPT/HCPCS: 78815; 82962; A9552; J1642

== ENCOUNTER 2020-01-01 10:21 | Outpatient (CLI) | payer BC, MEDICARE ==
--- NOTE | 2020-01-01 14:12 | PET Report ---
PET/CT HISTORY: C50.812. Restaging of left breast cancer. TECHNIQUE: The patient's fasting blood glucose was 139. The patient weighed 113 lbs. The patient w as injected with 14.8 mCi of FDG in the left hand at 1113 hours and imaging was started at 1222 hours . The patient was imaged from the skull base to the thighs. All CT scans at this location are perfor med using CT dose reduction for ALARA by means of automated exposure control. Images were reviewed on a workstation. COMPARISON: 07/17/2019 FINDINGS: IMAGED BRAIN: Physiologic FDG uptake. NECK: Physiologic FDG uptake. CHEST WALL: Physiologic FDG uptake. Stable left mastectomy changes. MEDIASTINUM: Physiologic FDG uptake. LUNGS: Physiologic FDG uptake. HEPATOBILIARY: Multiple liver lesions are again identified which appear relatively stable in size an d number. An approximate 2 cm lesion in the anterior right hepatic lobe demonstrates a decreased SUV 5.9 to 4.6. An approximate 3 cm mass in the posterior right hepatic lobe demonstrates a decreased SUV from 7.0 to 5.1. A third 2 cm right hepatic lobe lesion demonstrates decreased SUV from 5.8 to 4.6. PANCREAS: Physiologic FDG uptake. SPLEEN: Physiologic FDG uptake. KIDNEYS/BLADDER: Physiologic FDG uptake. ADRENAL GLANDS: Physiologic FDG uptake. GI/MESENTERY: Physiologic FDG uptake. PELVIC VISCERA: Physiologic FDG uptake. LYMPH NODES: Physiologic FDG uptake. OSSEOUS STRUCTURES: Numerous sclerotic bony lesions are again noted which appears stable in size and number. Previously described hypermetabolic activity in the right acetabular lesion has resolved. Th ere appears to be minimal increased uptake in the left posterior iliac bone with max SUV measuring 3. 4. In retrospect this appears unchanged since the previous exam. ADDITIONAL FINDINGS: None. IMPRESSION: A positive response to therapy is demonstrated since 07/17/2019 exam. Hepatic and osseous metastasis appear stable in size and number but decreased in metabolic activity as outlined above. No new areas of disease are detected. Signer Name: Donald Trinh Jr, MD Signed: 01/01/2020 2:08 PM Workstation Name: [id number]
== END 2020-01-01 10:22 | disposition home or self-care (01) ==
LOC: PET 10:21
PROVIDERS: ATTEND Internal Medicine Hematology & Oncology
DX: C50.812 Malignant neoplasm of overlapping sites of left female breast (principal); R16.0 Hepatomegaly, not elsewhere classified; K76.9 Liver disease, unspecified; M89.9 Disorder of bone, unspecified; E83.51 Hypocalcemia; M87.9 Osteonecrosis, unspecified; Z90.10 Acquired absence of unspecified breast and nipple
CPT/HCPCS: 78815; 82962; A9552

== ENCOUNTER 2020-07-08 08:36 | Outpatient (CLI) | payer BC, MEDICARE ==
--- NOTE | 2020-07-13 12:39 | PET Report ---
PET-CT SCAN INDICATION / CLINICAL INFORMATION: C70.9/C50.812/E83.51. STAGING: Re-staging TECHNIQUE: Tumor imaging, positron emission tomography (PET) with concurrently acquired computed tomography (CT) for attenuation correction and anatomical localization; Skull Base to Mid Thigh - DOSE: 15.4 mCi F-18 FDG was administered IV per protocol - GLUCOSE: Patient's blood glucose at that time was (mg/dL): 122 - UPTAKE TIME: PET scan performed approximately 60 minutes after radiotracer administration. - CT SCAN DESCRIPTION: No oral or IV contrast. All CT scans at this location are performed using CT d ose reduction for ALARA by means of automated exposure control. COMPARISON: 01/01/2020 FINDINGS: HEAD / NECK: No abnormal radiotracer uptake in the neck. No significant CT abnormality. CHEST: No abnormal radiotracer uptake in the chest. No significant CT abnormality. ABDOMEN / PELVIS: There is worsening hepatic metastatic disease. The the lesions are increased in siz e in the interval. Maximum SUV is appears similar. Index lesion in the superior aspect of the right l obe measures 3.6 cm currently and measured 2.7 cm previously. This measures up to 5.1 SUV on the curr ent prior study. Similar appearance and other lesions in the liver with increase in size of lesions. Maximum SUV measurements are similar to the prior study though the overall area of uptake within thes e lesions is increased. LOWER EXTREMITIES: No abnormal radiotracer uptake in the visualized lower extremities. No significant CT abnormality. SKELETAL STRUCTURES: There are numerous sclerotic osseous metastases again noted. The appearance appe ars similar to the prior CT scan. The uptake within the osseous structures appears unchanged. ADDITIONAL FINDINGS: No additional significant findings. IMPRESSION: 1. There is worsening hepatic metastatic disease. 2. Osseous metastatic disease appears stable. Signer Name: Aubrey Prasad MD Signed: 07/13/2020 12:34 PM Workstation Name: [id number]
== END 2020-07-08 08:37 | disposition home or self-care (01) ==
LOC: PET 08:36
PROVIDERS: ATTEND Internal Medicine Hematology & Oncology
DX: C50.812 Malignant neoplasm of overlapping sites of left female breast (principal); D70.9 Neutropenia, unspecified; E83.51 Hypocalcemia; M87.9 Osteonecrosis, unspecified; G89.3 Neoplasm related pain (acute) (chronic)
CPT/HCPCS: 78815; 82962; A9552; J1642